=== PATIENT | female | born 1980 | race Caucasian/White ===

== ENCOUNTER 2025-03-31 00:24 | Outpatient (CLI) | payer BC, SELFPAY | END 2025-03-31 00:25 | disposition home or self-care (01) | LOC: AMB 04-09 13:54 | PROVIDERS: Visit Provider Emergency Medicine | DX: S09.93XA Unspecified injury of face, initial encounter (principal); S89.91XA Unspecified injury of right lower leg, initial encounter; W10.8XXA Fall (on) (from) other stairs and steps, initial encounter; Y92.008 Other place in unspecified non-institutional (private) residence as the place of occurrence of the external cause | CPT/HCPCS: A0425; A0427 ==

== ENCOUNTER 2025-03-31 12:27 | Emergency (ER) | payer BC, SELFPAY ==
[2025-03-31 12:30] VITALS: BP 167/102; PULSE 90; RESP 20; TEMP 36.2; O2SAT 97; BMI 29.1
--- NOTE | 2025-03-31 12:38 | ED.GENADULT ---
HPI - General Adult General Date Seen: 03/31/25 Chief complaint: Laceration/Wound Stated complaint: fell down stairs, mouth injury Time Seen by Provider: 03/31/25 12:37 History of Present Illness HPI narrative: 45 yo F presenting to the ER today for injuries after she fell down the steps. She fell down 8-10 stairs last night. She was taken to [facility] last night for workup and discharge this morning at 6 or 7. She got home this morning, she had a mouth laceration that was not addressed at and min. She does have a history of seizure disorder that is well controlled. She did not have a seizure last night. She had been drinking when she fell down some steps and hit her face. She was taken by EMS here in [place] directly to [facility] in she had a workup for traumatic injuries. She and her family describe that she had a head CT, C-spine CT, multiple x-rays, and ultrasound of her right calf. All of her stay workup was reassuring for any serious injuries and she was discharged home. She was having lower jaw pain last night but passed a tongue blade test and so did not have x-rays or scans or maxillofacial bones. This morning when she woke up she noticed a fairly large laceration affecting the fornix of her lower lip were the mucosa reflex up to the gums over her mandible. It is not bleeding but it is fairly large so she came here to the ER to see if it needed stitches or antibiotics. Related Data Home Medications ?Medication ?Instructions ?Recorded ?Confirmed fluoxetine 40 mg capsule 80 mg PO DAILY 03/31/25 03/31/25 levetiracetam PO 03/31/25 Allergies Allergy/AdvReac Type Severity Reaction Status Date / Time phenytoin (From Dilantin) Allergy Unknown Verified 03/31/25 12:33 Sulfa (Sulfonamide Allergy Unknown Verified 03/31/25 12:33 Antibiotics) Exam Narrative: Exam Narrative: Primary Survey: A- patent. Speaking clearly. Phonation normal. No stridor. B- breathing easily. Lung sounds clear and equal. Oxygen saturation normal on room air C- no active bleeding. Blood pressure stable. Symmetric pulses and cap refill in 4 extremities. D- alert and oriented x3. GCS 15. No focal deficits. Constitutional: Appears well-developed and well-nourished. Alert. Conversant. Non toxic. HENT: Head: She has bruising and abrasions on her left eyebrow and left cheek over the zygoma but no obvious bony deformity. No accept emesis or enophthalmos. Gaze is conjugate. Extraocular movements are normal. Nose has no deformity. No active epistaxis. Septum appears midline. No septal hematoma. Mouth/Throat: She has some bruising on her lower lip but no external lacerations. Teeth are normal. No new dental fractures or injuries. No dental subluxation. She is status post extraction of her wisdom teeth. She has a few feelings in her molars. All teeth look fine and I do not see any acute dental injury. She has a laceration involving the mucosal surface of her lower lip/mandible. The laceration is in the fornix or the mucosa of lower lip reflects back up onto the mucosa of the gums anterior to the mandible. The laceration is about 3-4 cm in length. On the right side it begins inferior to the right lateral incisor and extends leftward around the anterior mandible to the left side of the mandible and ends roughly below the left 1st premolar. When the patient reflects her lip I can see that the wound does gape open. There is no active bleeding. No visible foreign body. Otherwise, Mucous membranes are moist. no trismus. Pharynx normal. Tonsils symmetric. No tonsillar enlargement, erythema, or exudate. Eyes: Conjunctivae normal. EOM normal. Pupils equal, round, and reactive to light. No scleral icterus. Neck: Normal range of motion. Neck supple. No tracheal deviation present. No posterior midline tenderness. Cardiovascular: Normal rate, regular rhythm. No gallop. No friction rub. No murmur heard. Symmetric radial artery pulses Pulmonary/Chest: Effort normal. No stridor. No respiratory distress. No wheezes. No rales. No rhonchi . No tenderness. Musculoskeletal: RUE: Normal range of motion. No tenderness. No deformity LUE: Normal range of motion. No tenderness. No deformity RLE: Normal range of motion. No edema. No tenderness. No deformity LLE: Normal range of motion. No edema. No tenderness. No deformity Neurological: Alert and oriented to person, place, and time. Normal strength. CN II-VII intact. No sensory deficit. GCS eye subscore is 4. GCS verbal subscore is 5. GCS motor subscore is 6. Normal coordination Skin: Skin is warm and dry. No rash noted. No pallor. Normal capillary refill. Psychiatric: Normal mood. Normal affect. Const: Vital Signs, click to edit/add: Vital Signs - 24 hr 03/31/25 12:30 Temperature 97.2 F L Pulse Rate [Pulse Oximeter] 90 Respiratory Rate 20 Blood Pressure [Ri ght Upper Arm] 167/102 H Pulse Oximetry 97 Oxygen Delivery Me thod Room Air Course Vital Signs Vital signs: Initial Vital Signs Temperature 97.2 F L 03/31/25 12:30 Temperature Source Temporal Artery Scan 03/31/25 12:30 Pulse Rate 90 03/31/25 12:30 Respiratory Rate 20 03/31/25 12:30 Blood Pressure 167/102 H 03/31/25 12:30 Blood Pressure Mean 123 H 03/31/25 12:30 Blood Pressure Position Sitting 03/31/25 12:30 Pulse Oximetry 97 03/31/25 12:30 Oxygen Delivery Method Room Air 03/31/25 12:30 Vital Signs Temperature 97.2 F L 03/31/25 12:30 Pulse Rate 90 03/31/25 12:30 Respiratory Rate 20 03/31/25 12:30 Blood Pressure 167/102 H 03/31/25 12:30 Pulse Oximetry 97 03/31/25 12:30 Oxygen Delivery Method Room Air 03/31/25 12:30 Temperature 97.2 F L 03/31/25 12:30 Pulse Rate 90 03/31/25 12:30 Respiratory Rate 20 03/31/25 12:30 Blood Pressure 167/102 H 03/31/25 12:30 Pulse Oximetry 97 03/31/25 12:30 Oxygen Delivery Method Room Air 03/31/25 12:30 Medical Decision Making MDM Narrative Medical decision making narrative: This is a very pleasant 45-year-old female who presents to the ER today for re-evaluation of facial injuries. Specifically, she has an intraoral laceration affecting the mucosal reflection between her lower lip and the it gingival mucosa anterior to her mandible. She had fallen down some steps last night and has already had an evaluation at the [facility] and was discharged from there this morning without finding any serious injuries. She came back to our ER here in [place] today because when she woke up after getting a few hours sleep she discovered her intraoral wound. On evaluation she does have a fairly long laceration almost 4 cm. It does gape open fairly widely when she reflects her lip down so I can see the wound. There is no active bleeding. No foreign body. Typically for an intraoral wound this link we would try to suture it up, however this is anatomically a very challenging spot where it will be very difficult to get sutures to hold in the gingival mucosa on the mandible side. Discussed by phone with the oral surgeon from [facility], Dr. Harrison. With the patient's permission I did text him pictures of her wound. He and I reviewed options. He thinks that this potentially has a chance to heal well with secondary intention is on his we keep the patient on a clear liquid diet for the next several days. He also discussed that we could try to put some sutures in with the patient here in the ER [place]. If we can get the sutures to hold in the mandibular periosteum that they might stay. There is a chance they might break loose. He also discussed that we could potentially floss the sutures around the teeth of lower mandible to try to hold the wound in place. A 3rd option would be to send her back to the [facility] [place] and he in the oral surgeons could attempt to repair the wound (with the same risks of dehiscence, if they do they were compared if we do it here). Discussed these options with the patient and her . Using shared decision making we decided to let this wound heal by secondary intention. I will give him and [facility] prescription for amoxicillin they can start today to try to prevent infections. She politely declines offered prescription pain killers. She think should be able to manage with [id number]. She I recommend that she follow-up with her dentist when she gets home to [facility] within the next couple of days. If this wound is not healing or if it showing sign of infection, she may need further surgical evaluation. She and her are comfortable this plan of care. Discharge Plan Discharge Clinical Impression: Laceration of internal mouth Patient Disposition: Home, Self-Care Condition: Stable Instructions: Laceration Without Closure (ED) Additional Instructions: As we discussed, you to have a fairly large laceration affecting the area in your mouth way your lower lip attaches to your lower gums. We have decided not to sew it up at this time. Please start on the antibiotics today to try to keep it from getting infected. For the next 5-7 days stick to a clear liquid diet. Try to drink liquids (or smoothies) through a straw. After you eat or drink, gently rinsed her mouth out with water. Do not eat any crunchy or hard food because this could put food particles down into the laceration. Please follow-up with your dentist within the next 2-3 days, when you get home. If you have any concerns, please come back to the ER right away. Prescriptions: No Action fluoxetine 40 mg capsule 80 mg PO DAILY levetiracetam [Keppra] PO Follow Up/Referrals: Provider,Not a Local [Primary Care Provider, Family Practice] Stand Alone Forms: MeetMe Info Instructions
--- OUTSIDE RECORDS SUMMARY | 2025-03-31 13:21 | XMS_ITS | Encounter Summary ---
Author Organization [facility] Address [address] [place] [address] Phone Care Team Providers Care Methods Specialist Name Role Phone Zachery Barrera MD Unavailable [phone] Deysi Barrow DNP Primary Care Provid er Reason for Visit * ReasonCommentsMedication Refill Encounter Details DateTypeDepartmentCare Team (Latest Contact Info)Pkowhksppht13/18/2025[facility] - Neurology - [facility] [address] [place] [address] Elijah James MD [address] [place] [address] Social History Tobacco UseTypesPacks/DayYears UsedDateSmoking Tobacco: FormerSmokeless Tobacco: Never Comments:denies Alcohol UseStandard Drinks/WeekCommentsNot Currently0.8 (1 standard drink = 0.6 oz pure alcohol)socialPHQ-2AnswerDate RecordedTotal score/PHQ-21008/16/2022 PHQ-9AnswerDate RecordedTotal Score (PHQ-9 includes PHQ-2 questions/score)8 08/16/2022buse RiskAnswerDate RecordedAre you in an UNsafe relationship?Not on file4Does your partner/boyfriend or girlfriend hit, kick, hurt, or threaten you?Not on file03/10/2024Have you suffered any injury as a result of abuse in the past year?Not on file06/12/2023oes your partner/boyfriend or girlfriend ever try to control you by threatening you or your family?Not on file 06/12/2023re you currently being forced to engage in sexual activity?Not on file06/12/2023re you being abused or threatened in your work or home environment?Not on file06/12/2023re you being forced to work?Not on file 06/12/2023Is the patient a ???dependent adult?? ?Not on file06/12/2023o you feel unsafe at home?Does not apply06/12/2023Has anyone tried to force you to sign papers or to use your money against your will?Does not apply06/12/2023 CommentsUnknownSex and Gender InformationValueDate RecordedSex Assigned at RoegtDfzzrb14/19/2024 9:46 AM CSTLegal JnkPsqwio62/19/2012 2:25 AM CDTGender SjopfinxPsmrwh53/19/2024 9:46 AM CSTSexual YchtpluhmuaAvwxontg83/19/2024 9:46 AM CSTdocumented as of this encounter Plan of Treatment DateTypeDepartmentCare Team (Latest Contact Info)Edwadjflupm02/07/2026 2:30 PM [facility] [address] [place] [address] Elijah James MD [address] [place] [address] documented as of this encounter Visit Diagnoses Diagnosis Nonintractable epilepsy without status epilepticus, unspecified epilepsy type (HCC) documented in this encounter Additional Health Concerns AssessmentNoted TimePHQ-9 Depression Total Score: 805 2:54 PM CDTA fall risk assessment has been completed for the mnautkm0612/28/2023 11:40 AM CDTPHQ-2 Depression Total Score: 105 2:54 PM CDTdocumented as of this encounter Care Teams Team MemberRelationshipSpecialtyStart DateEnd [place] [address] PCP - Primary Care Nhyyjbtnw92/10/07 Deysi Barrow ARNP, [address] [place] [address] PCP - GeneralFamily Practice06/23/23documented as of this encounter
--- OUTSIDE RECORDS SUMMARY | 2025-03-31 13:21 | XMS_ITS | Clinical Summary ---
Author Organization [facility] Address [address] [place] [address] Care Team Providers Care Retail Equipment Associate Name Role Phone Zachery Barrera MD Unavailable [phone] Deysi Barrow DNP Primary Care Provid er Source Comments This disclosure is being made pursuant to the Care Everywhere program,applicable federal and state laws, and may not contain all informationavailable regarding this patient.[facility] Allergies Active AllergyReactionsCriticalityNoted DateCommentsPhenytoin Sodium Extended Urticaria (Hives)12/18/2015Sulfa (Sulfonamide Antibiotics)Urticaria (Hives) 12/18/2015 Medications MedicationSigDispense QuantityRefillsLast FilledStart DateEnd DateStatus ALPRAZolam (XANAX) 0.25 mg tablet Indications:Anxiety,Recurrent major depressive disorder, remission status unspecified,Seizure (HCC)Take 1 tablet (0.25 mg total) by mouth 3 times daily as needed. 30 tablet 4Active vitamin B complex tablet Take 1 tablet by mouth daily.Active cholecalciferol (VITAMIN D3) 50 mcg (2,000 unit) capsule Take 1 capsule (50 mcg total) by mouth daily.Active norethindrone 0.35 mg tablet Indications:Anxiety,Medication refill,Recurrent major depressive disorder, remission status unspecified,Seizure (HCC)TAKE ONE TABLET BY MOUTH EVERY DAY 28 tablet 1105Active montelukast 10 mg tablet Indications:CoughTake 1 tablet (10 mg total) by mouth daily. 90 tablet 5Active FLUoxetine (PROzac) 20 mg capsule Indications:Recurrent major depressive disorder, remission status unspecified Take 4 capsules (80 mg total) by mouth daily. 360 capsule 5Active LEVETIRACETAM 500 mg tablet Indications:Nonintractable epilepsy without status epilepticus, unspecified epilepsy type (HCC)TAKE ONE TABLET BY MOUTH TWICE A DAY 180 tablet /5Active levETIRAcetam 500 mg tablet Indications:Nonintractable epilepsy without status epilepticus, unspecified epilepsy type (HCC)Take 1 tablet (500 mg total) by mouth 2 times daily. 180 tablet 309//[id number]/Discontinued Active Problems ProblemNoted DateDiagnosed DateAllergic jllznnij56/03/2021 Assessment & Plan (07/06/2024 10:31 AM CDT): Well controlled with montelukast 10 mg daily Hpvguze2205/14/2013 Assessment & Plan (07/06/2024 10:30 AM CDT): Has alprazolam prescription, uses very sparingly for acute panic. Absolute pkwgyo3606/23/20121425Ljanxjsqbj62/12/2013 Assessment & Plan (07/06/2024 10:32 AM CDT): On Paxil 80 mg daily, symptoms well controlled H/O gastric lapmgf8902/16/2012Generalized lwxuqkvt14/15/2011 Assessment & Plan (07/06/2024 10:29 AM CDT): On Keppra 500 mg twice a day, continues to follow with Neurology annually Resolved Problems ProblemNoted DateDiagnosed DateResolved DateAcute rsusnbnyn07 Ear fullness, rtbpsyftu75/07/20248496Cgfidzyadjxijyg20/12/201604/04/2025 Jrgwvnpnfu20Other specified postprocedural hcckfm7308/22/2012 07/06/2024Maternal Diabetes Mellitus, Qbbgnrhrgx24Supervision of other normal nrlqhsvny62 Encounters DateTypeDepartmentCare AcgbSpdbewiyzqe26/18/2025[facility] - Neurology - [facility] [address] [place] [phone] Elijah James MD from Last 3 Months Immunizations ImmunizationAdministration DatesNext DueCOVID-19, mRNA (MODERNA) 100mcg/0.5mL 06/13/2020,05/15/2020OVID-19, mRNA, lennie-sucrose 12+ yo (PFIZER) 30mcg/0.3mL 05/05/2021Influenza, quadrivalent PF05/05/2021,02/20/2020,01/29/2019Influenza, gmxeenouqjg49/27/2010,01/24/2007Tdap05/23/2023,05/25/2012 Family History Medical HistoryRelationCommentsCancerBrotherSeizuresBrotherDepressionMaternal AuntObesityMaternal GrandfatherSubstance AbuseMaternal GrandfatherCancerMaternal GrandmotherDepressionMaternal GrandmotherDepressionMotherSubstance AbuseMother DementiaPaternal GrandmotherBleeding ProbSisterRelationStatusCommentsBrother Maternal AuntMaternal GrandfatherMaternal GrandmotherMotherPaternal Grandmother Sister Social History Tobacco UseTypesPacks/DayYears UsedDateSmoking Tobacco: FormerSmokeless Tobacco: Never Tobacco Cessation:Counseling Given: No Comments:denies Alcohol UseStandard Drinks/WeekCommentsNot Currently0.8 (1 standard drink = 0.6 oz pure alcohol)socialPHQ-2AnswerDate RecordedTotal score/PHQ-21008/16/2022 PHQ-9AnswerDate RecordedTotal Score (PHQ-9 includes PHQ-2 questions/score)8 08/16/2022buse RiskAnswerDate RecordedAre you in an UNsafe relationship?Not on file06/12/2023oes your partner/boyfriend or girlfriend hit, kick, hurt, or threaten you?Not on file06/12/2023Have you suffered any injury as a result [...] CommentsUnknownSex and Gender InformationValueDate RecordedSex Assigned at VpxdgOcneeb31/19/2024 9:46 AM CSTLegal IztLporal55/19/2012 2:25 AM CDTGender TlboyturXcltal20/19/2024 9:46 AM CSTSexual BpmkuouyfboXlcoossv43/19/2024 9:46 AM PLUMBER'S HELPER Last Filed Vital Signs Vital SignReadingTime TakenCommentsBlood Caujaxqr510/8404 9:55 AM CDT Kybfn283907/12/2024 8:24 AM NAUPuvrostvkzh32.9 ??C (98.5 ??F)07/12/2024 8:24 AM CDTRespiratory Wgdw386007/12/2024 8:24 AM CDTOxygen Zbvdafrlbh27%07/12/2024 8:24 AM CDTInhaled Oxygen Concentration--Zquuvd88 kg (183 lb)07/06/2024 9:55 AM CDT Qtuqgx697.3 cm (5' 7.05)07/06/2024 9:55 AM CDTBody Mass Index28.62007/06/2024 9:55 AM CDT Plan of Treatment DateTypeDepartmentCare Team (Latest Contact Info)Tiapyttqxgg40/07/2026 2:30 PM [facility]TA[facility] - Ep[facility] [address] [place] [address] Elijah James MD [address] [place] [address] Health MaintenanceDue DateLast DoneCommentsHIV Olympia Jyjbhtqvr77/01/1994 Hepatitis B Vaccine (1 of 3 - 19+ 3-dose series)1998CT Colonography 01/02/20241846Pykntqmtcbj41/30/2024olorectal Hyzhksfss13/30/2024FIT-DNA2024 FIT2024FOBT2024Flex Kqjzdvxoqfvju13/30/2024rediabetes and Type 2 Diabetes Vexzdmkhy37, 01/24/20077622MELGM-OUKY-IrB-2 Vaccine ( season), 06/13/2020, 05/15/2020Influenza Vaccine: Seasonal (#1)/04/2021, 02/20/2020, 01/29/2019, Additional history ouyxefIzerfhhpo17, 01/30/2021nnual Physical Visit07/06/2025 07/06/2024, 07/06/2024, 06/23/2023, Additional history existsLipid Disorder Pzceavrgp23, 05/19/2021ervical Cancer Mrdtckcxa92/21/2029 06/23/2023, 05/19/2021, 11/22/2006Tetanus Diphtheria Pertussis (3 - Td or Tdap) , 05/25/2012HCV ZqrrnhiskJpiabzlrg70/15/2022 Procedures Procedure NamePriorityDate/TimeAssociated DiagnosisComments[facility] 3D BILAT SCREEN DIGITAL W CAD (32053,88257)Sdllkcw1802/13/2024 Breast cancer screening by mammogram [facility] CYTOLOGY - PROP [facility] AGFAZNIYQpywyfq61/21/2024 11:21 AM CDT Screening for cervical cancer [facility] LIPID XAHZRFFFbermci53/19/2024 10:57 AM PLUMBER'S HELPER Anxiety Recurrent major depressive disorder, remission status unspecified (HCC) Seizure (HCC) [facility] HEPATITIS C ANTIBODY SCREENING WITH REFLEX TO HCV EJVIwpruam14/15/2022 9:10 AM PLUMBER'S HELPER Need for hepatitis C screening test HEMOGLOBIN A1C01/24/2007 4:00 PM CDT from Last 3 Months or Most Recently Relevant to Health Maintenance Results * [facility] BI MAMMO 3D BILAT SCREEN DIGITAL W CAD (85149,85107) (02/13/2024) Narrative Authorizing ProviderResult TypeResult StatusGloria Danial SCHNEIDER, [facility] RAD BIFinal Result * [facility] CYTOLOGY - [facility] SPECIMEN (06/23/2023 11:21 AM CDT)ComponentValueRef Range Test MethodAnalysis TimePerformed AtPathologist SignatureG. V. ([facility] REPORT 06/30/2023 9:[address] [facility]ARY [facility]ITAL LABORATORYComment: PATHOLOGISTS [facility] ?Chauncey Del Real M.D. [address] [place] [address] ?Pina Elliott M.D. ? Lopez Bowden M.D. ? [facility] CYTOLOGY REPORT PATIENT: ?? MARISOL GRACE ? DATE OF : 1980 AGE: 43 yrs SEX: F ??DATE COLLECTED: ?06/23/2023 ?DATE RECEIVED: ? 06/25/2023 ? DATE REPORTED: ? 06/30/2023 08:58 PHYSICIAN: Deysi Barrow M.D. SOURCE: ?Cervical SPECIMEN TYPE: ?? HPV REGARDLESS W/ RFX TO 16/18 NUMBER OF SLIDES: 1 CLINICAL HX / DX: cycle not indicated No Clinical Information Provided SPECIMEN ADEQUACY: Satisfactory for evaluation. Endocervical/Transformation zone component present INTERPRETATION/RESULTS: NEGATIVE FOR INTRAEPITHELIAL LESION OR MALIGNANCY HPV RESULT: HPV mRNA E6/E7: ?? NOT DETECTED Reference range: ??NOT DETECTED Methodology: Improvement Coordinator-Mediated Amplification This assay detects E6/E7 viral messenger RNA (mRNA) from 14 high-risk HPV types (16,18,31,33,35,39,45,51,52,56,58,59,66,68). Cervical sources are required for HPV testing. ??If a vaginal source from a patient who has had a total hysterectomy with removal of cervix was submitted, please contact the testing laboratory for alternative testing options. For additional information, please refer to [email or web address] (This link if provided for information/educational purposes only.) Performed by [facility], [place], [place]. ? Electronically Signed By: RHIT: ? Khalida Campo ? 06/28/2023 09:45 CPT: 71308 NOTE TO CLINICIAN: The Pap test is the most effective screening tool for the detection of cervical cancer. However, the Pap test is not perfect. Because there is an irreducible false-negative rate associated with Pap tests, it is recommended that women with no unusual symptoms have regular cervical screening. ? Page 1 of 1 Specimen (Source)Anatomical Location / LateralityCollection Method / Volume Collection TimeReceived TimeOtherOther Sample Type / Ajuwkmw1906/23/2023 11:21 AM CDT06/25/2023 5:54 AM CDT Narrative [facility] - 06/30/2023 9:13 AM CDT Pap smear options:->Thin Prep + HPVSpecimen source:->cervical Authorizing ProviderResult TypeResult StatusGlmacrina SCHNEIDER, [facility] ANATOMIC PATHOLOGYFinal ResultPerforming OrganizationAddressCity/State/ZIP Code Phone Number [facility] [address] [place] [address] * [facility] LIPID PROFILE (05/23/2023 10:57 AM PLUMBER'S HELPER)ComponentValueRef RangeTest Method Analysis TimePerformed AtPathologist SignatureCholesterol - IRXT156<=200 mg/dL 05/23/2023 12:26 PM [facility] LABTriglycerides - JCHC 91<=150 mg/dL05/23/2023 12:26 PM [facility] LABHDL Cholesterol - QHEC4049 - 150 mg/dL05/23/2023 12:26 PM [facility] LABLDL Cholesterol - JCHC54<=130 mg/dL05/23/2023 12:26 PM PLUMBER'S HELPER [facility] LABSpecimen (Source)Anatomical Location / LateralityCollection Method / VolumeCollection TimeReceived TimeBlood Venipuncture / Mvztfzj1805/23/2023 10:57 AM CST05/23/2023 11:00 AM PLUMBER'S HELPER Narrative Authorizing ProviderResult TypeResult StatusZachery Barrera [facility] LABFinal ResultPerforming OrganizationAddressCity/State/ZIP CodePhone Number [facility] [address] [place] [phone], * [facility] HEPATITIS C ANTIBODY SCREENING WITH REFLEX TO HCV PCR (05/19/2021 9:10 AM PLUMBER'S HELPER)ComponentValueRef RangeTest MethodAnalysis TimePerformed AtPathologist SignatureBiotin Taken - HCV IeyglaVt05/16/2022 12:28 PM CSTCH[facility] LAB, [place]ODWARDHepatitis C Virus Antibody - JCHCNon-Reactive Non-Skaghlvi25/16/2022 12:28 PM [facility], [place]ODW[place]DSpecimen (Source)Anatomical Location / LateralityCollection Method / VolumeCollection TimeReceived TimeBlood specimen (specimen)Venipuncture / Hsdgdut5405/19/2021 9:10 AM CST05/19/2021 9:10 AM PLUMBER'S HELPER Narrative Authorizing ProviderResult TypeResult StatusGloria Danial SCHNEIDER [facility] LAB Final ResultPerforming OrganizationAddressCity/State/ZIP CodePhone Number [facility], [place] [address],?? [address] [place] [address], * HEMOGLOBIN A1C (01/24/2007 4:00 PM CDT)ComponentValueRef RangeTest Method Analysis TimePerformed AtPathologist SignatureHemoglobin A1c5.24.8 - 6.0 % [facility] ([facility])Estimated Average Hrvyopr147LD/DL [facility] ([facility])Specimen (Source)Anatomical Location / LateralityCollection Method / VolumeCollection TimeReceived Time01/24/2007 4:00 PM CDT1 4:00 PM CDT Narrative Authorizing ProviderResult TypeResult StatusSusan Wing-LipinskiCHEMISTRY ORDERABLESFinal ResultPerforming OrganizationAddressCity/State/ZIP CodePhone Number [facility] ([facility]) [address] [place] [address] from Last 3 Months or Most Recently Relevant to Health Maintenance Insurance * Guarantor: Marisol Grace TypeRelation to PatientDate of PhoneBilling AddressThird Green Party [id number] [address] [place] [facility] [place] [address] MemberSubscriberPlan / Payer (Effective 2023-Present)Name:Marisol Grace Relation to Subscriber:SelfName:Marisol Grace Payer ID:Not on file Group ID:[id number] Type:Not on file Address: [address] [place] [id number] Care Teams Team MemberRelationshipSpecialtyStart DateEnd Date Zachery Barrera MD [address] [place] [address] PCP - Primary Care Ccecnuwrz15/10/07 Deysi Barrow ARNP, DNP [address] [place] [address] PCP - GeneralFamily Practice06/23/23
== END 2025-03-31 14:38 | disposition home or self-care (01) ==
PROVIDERS: Emergency Provider Emergency Medicine
DX: S01.512A Laceration without foreign body of oral cavity, initial encounter (principal); W10.9XXA Fall (on) (from) unspecified stairs and steps, initial encounter
CPT/HCPCS: 99282; 99283